=== PATIENT | female | born 1960 | race African-American/Black ===

== ENCOUNTER 2016-04-04 13:19 | Emergency (ER) | payer SELFPAY ==
[~2016-04-04] VITALS: Ht 152.4 cm; Wt 86.2 kg
[~2016-04-04 13:19] MED LIST: BACTRIM-DS1 EA ORAL; CEPHALEXIN500 MG ORAL; CLINDAMYCIN HC300 MG PO; NKM; TRAMADOL HCL50 MG ORAL; TRAMADOL HCL50 MG PO; ZITHROMAX250 MG ORAL
[2016-04-04 13:30] VITALS: BP 148/90
[2016-04-04] MEDS ORDERED: VITAMIN D1000 UNI1 ORAL (13:33)
--- NOTE | 2016-04-04 14:27 | Emergency Room Report ---
History of Present Illness General Chief Complaint: Upper Respiratory Illness Source: Patient Present Illness HPI 55-year-old female presents to emergency Department complaining of productive cough, fevers and chills in addition to nasal congestion times one week. 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 Patient states she is up-to-date with vaccinations she denies immunocompromise, recent travel or neck pain or stiffness. Patient does report sinus pressure with intermittent headaches. Patient denies history of asthma or smoking. Patient reports 8/10 in severity pain in the back exacerbated upon coughing.Denies CP, Palpitations, LOC, AMS, dizziness, Changes in Vision, Sensation, paresthesias, or a sudden severe headache. Allergies: Coded Allergies: HYDROCODONE BIT (Verified Allergy, Unknown, 04/04/16) Patient History Past Medical History: see triage record Past Surgical History: none Pertinent Family History: none Now: No Immunizations: UTD Reviewed Nursing Documentation: PMH: Agreed, PSxH: Agreed Nursing Documentation-PMH Past Medical History: No History, Except For Hx Hypertension: Yes Review of Systems All Other Systems: negative except mentioned in HPI Physical Exam Vital Signs Date Time Temp Pulse Resp B/P Pulse Ox O2 Delivery O2 Flow Rate FiO2 04/04/16 13:30 99.5 98 16 148/90 94 Room Air Sp02 EP Interpretation: reviewed, normal General Appearance: no apparent distress, alert, GCS 15, non-toxic Head: normocephalic, atraumatic Eyes: bilateral eye PERRL, bilateral eye normal inspection ENT: hearing grossly normal, normal pharynx, no angioedema, normal voice Neck: full range of motion, no meningismus, no bony tend, supple/symm/no masses Respiratory: chest non-tender, lungs clear, normal breath sounds, rales - left sided rales upon ascultation, speaking full sentences Cardiovascular #1: regular rate, rhythm, no edema Musculoskeletal: back normal, gait/station normal, normal range of motion Neurologic: alert, oriented x3, responsive, motor strength/tone normal, sensory intact, speech normal Psychiatric: judgement/insight normal, memory normal, mood/affect normal, no suicidal/homicidal ideation Skin: normal color, no rash, warm/dry, well hydrated Lymphatic: no adenopathy Medical Decision Making PA Attestation Dr. Bravo is my supervising Physician whom patient management has been discussed with. Diagnostic Impression: Primary Impression: Atypical pneumonia ER Course Pt. presents to the ED c/o productive cough, fevers and chills in addition to nasal congestion times one week. 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 Ddx considered but are not limited to URI, pneumonia, PE, strep pharyngitis, meningitis. Vital signs: Pt. is afebrile, the remaining VS are WNL H&PE are most consistent Clinically with atypical pneumonia ORDERS: -CXR 2 views: No consolidation, effusion, pneumothorax or acute cardiopulmonary findings per soft/preliminary read in ED by Dr. Bravo ED INTERVENTIONS: - Albuterol and Atrovent Nebulized Treatment. -1000mg Tylenol PO DISCHARGE: At this time pt. is stable for d/c to home. Will provide printed patient care instructions, and any necessary prescriptions. Care plan and follow up instructions have been discussed with the patient prior to discharge. Last Vital Signs Date Time Temp Pulse Resp B/P Pulse Ox O2 Delivery O2 Flow Rate FiO2 04/04/16 13:45 94 16 Room Air 04/04/16 13:30 99.5 148/90 94 Disposition: HOME, SELF-CARE Condition: Stable Scripts D-Methorphan Hb/Prometh Hcl* (PROMETHAZINE-DM SYRUP*) 118 Ml Syrup 5 ML ORAL Q4H Y for For Cough, #118 ML 0 Refills Prov: Aster Hopkins 04/04/16 Guaifenesin (Guaifenesin) 1,200 Mg Tab.er.12h 1200 MG PO BID for 7 Days, #14 TAB Prov: Aster Hopkins 04/04/16 Azithromycin* (ZITHROMAX*) 250 Mg Tablet 250 MG ORAL DAILY, #6 TAB 0 Refills Take two tables once daily for 1 day, then one tablet once daily for 4 days. Prov: Aster Hopkins 04/04/16 Patient Instructions: Upper Respiratory Infection, Adult Additional Instructions: Take medications as directed. Follow up with PCP in 3-5 days Return sooner to ED if new symptoms occur, or current symptoms become worse. Do not drink alcohol, drive, or operate heavy machinery while taking Cough Syrup as this may cause drowsiness. Aster Hopkins Apr 04, 2016 14:27
[2016-04-04] MEDS ORDERED: Ipratropium 0.02% Inh Soln 2.5ml UD HHN ONE (14:30)
[2016-04-04] MEDS ORDERED: Albuterol ud Inhalation HHN ONE (14:30)
[2016-04-04] MEDS ORDERED: Acetaminophen 500mg (ES) tab ORAL ONE (14:30)
[2016-04-04] MEDS ORDERED: GUAIFENESIN1200 MG PO (15:08)
[2016-04-04] MEDS ORDERED: ZITHROMAX250 MG ORAL (15:08)
[2016-04-04] MEDS ORDERED: PROMETHAZINE-D118 ML ORAL (15:08)
[2016-04-04 15:44] VITALS: BP 139/89
[2016-04-04 15:45] VITALS: BP 139/89
--- NOTE | 2016-04-07 09:12 | Diagnostic Imaging Report ---
Clinical history: Cough. Technique: Portable AP chest radiograph was obtained. Comparison: None Findings: Lung volumes are low. Scattered interstitial and perihilar opacities may reflect mild interstitial edema or vascular crowding. No focal consolidation. There is no pleural effusion or pneumothorax. The cardiac and mediastinal silhouettes are normal in appearance. The bony thorax is unremarkable. Impression: Suspected mild interstitial edema or vascular crowding.
== END 2016-04-04 15:47 | disposition home or self-care (01) ==
LOC: EMR 13:40
DX: J18.9 Pneumonia, unspecified organism (principal); I10 Essential (primary) hypertension
CPT/HCPCS: 71020; 94640; 94664; 99284

== ENCOUNTER 2018-10-13 12:19 | Emergency (ER) | payer OTHER ==
[~2018-10-13] VITALS: Ht 152.4 cm; Wt 77.1 kg
[~2018-10-13 12:19] MED LIST changes: +GUAIFENESIN1200 MG PO; +PROMETHAZINE-D118 ML ORAL; +VITAMIN D1000 UNI1 ORAL
--- NOTE | 2018-10-13 12:23 | NUR ---
ED Nurse Note: Patient walked in to ER due to right hand and left elbow swelling and itching since last night. Patient suspects it is a spider bite. No active bleeding noted. No open wound. Afebrile. Alert and oriented x4, verbally responsive.
[2018-10-13] MEDS ORDERED: UNOBMED (12:26)
--- NOTE | 2018-10-13 12:57 | Emergency Room Report ---
History of Present Illness General Chief Complaint: Animal Bite Source: Patient Present Illness HPI 57 YO Female presents to the ED C/o Itchy insect bites one to the left elbow and one to the right hand since yesterday. She denies pain. She reports some erythema and swelling. Reports no relief with use of Calamine lotion. Pt. denies fevers, chills or swollen tender lymph nodes. Denies lesions/rashes elsewhere on the body. Denies new medications or body washes or creams. Denies swelling of the lips, tongue , throat or airway. Denies wheezing, or shortness of breath. Denies recent travel, recent illness or ill contacts. denies blisters, oral lesions, or sloughing of the skin. Allergies: Coded Allergies: HYDROCODONE BIT (Verified Allergy, Unknown, 04/04/16) Patient History Past Medical History: see triage record Past Surgical History: none Pertinent Family History: none Last Menstrual Period: 1999 Now: No Reviewed Nursing Documentation: PMH: Agreed; PSxH: Agreed Nursing Documentation-PMH Past Medical History: No History, Except For Hx Hypertension: Yes Review of Systems All Other Systems: negative except mentioned in HPI Physical Exam Vital Signs Date Time Temp Pulse Resp B/P (MAP) Pulse Ox O2 Delivery O2 Flow Rate FiO2 10/13/18 12:22 98.2 92 18 144/85 (104) 98 Room Air Sp02 EP Interpretation: reviewed, normal General Appearance: no apparent distress, alert, GCS 15, non-toxic Head: normocephalic, atraumatic Eyes: bilateral eye normal inspection, bilateral eye PERRL ENT: hearing grossly normal, normal voice Neck: full range of motion Respiratory: chest non-tender, lungs clear, normal breath sounds, no respiratory distress, no accessory muscle use, no wheezing, speaking full sentences Cardiovascular #1: regular rate, rhythm Musculoskeletal: back normal, gait/station normal, normal range of motion, non- tender Neurologic: alert, oriented x3, responsive, motor strength/tone normal, sensory intact, speech normal, grossly normal Psychiatric: judgement/insight normal Skin: other - swelling, and excoriations to the right dorsal hand, and left elbow. Right had has erythema and warmth. left elbow no appreciable erythema but moderate ST swelling, no blisters, vesicles or fluctuance. Lymphatic: no adenopathy Medical Decision Making PA Attestation Dr. Terrazas is my supervising Physician whom patient management has been discussed with. Diagnostic Impression: Primary Impression: Insect bites of multiple sites, infected ER Course 57 YO Female presents to the ED C/o Itchy insect bites one to the left elbow and one to the right hand since yesterday. She denies pain. She reports some erythema and swelling. Reports no relief with use of Calamine lotion. Pt. denies fevers, chills or swollen tender lymph nodes. Denies lesions/rashes elsewhere on the body. Denies new medications or body washes or creams. Denies swelling of the lips, tongue , throat or airway. Denies wheezing, or shortness of breath. Denies recent travel, recent illness or ill contacts. denies blisters, oral lesions, or sloughing of the skin. Ddx considered but are not limited to cellulitis, scabies, insect bites, tic bites, spider bites, contact dermatitis, Drug reaction, allergic reaction, fungal infection, lice. Vital signs: are WNL, pt. is afebrile H&PE are most consistent with multiple insect bites, infected. ORDERS: none required at this time, the diagnosis is clinical ED INTERVENTIONS: None required at this time. DISCHARGE: At this time pt. is stable for d/c to home. Will provide printed patient care instructions, and any necessary prescriptions. Care plan and follow up instructions have been discussed with the patient prior to discharge. Last Vital Signs Date Time Temp Pulse Resp B/P (MAP) Pulse Ox O2 Delivery O2 Flow Rate FiO2 10/13/18 12:22 98.2 92 18 144/85 (104) 98 Room Air Disposition: HOME, SELF-CARE Condition: Stable Referrals: NON PHYSICIAN (PCP) Patient Instructions: Insect Bite, [id number] Additional Instructions: Take medications as directed. Follow up with a Primary Care Provider in 3-5 days, even if your symptoms have resolved. --Please review list of primary care clinics, if you do not already have a primary care provider Return sooner to ED if new symptoms occur, or current symptoms become worse. Do not drink alcohol, drive, or operate heavy machinery while taking Benadryl as this may cause drowsiness. - Please note that this Emergency Department Report was dictated using [employer] technology software, occasionally this can lead to erroneous entry secondary to interpretation by the dictation equipment. Aster Hopkins Oct 13, 2018 12:56
[2018-10-13] MEDS ORDERED: BENADRYL ALLERG25 M1 PO (12:59)
[2018-10-13] MEDS ORDERED: CLINDAMYCIN HC300 MG ORAL (12:59)
[2018-10-13] MEDS ORDERED: MUPIROCIN22 GM TOPIC (12:59)
[2018-10-13 13:09] VITALS: BP 125/50
[2018-10-13 13:16] VITALS: BP 125/50
--- NOTE | 2018-10-13 13:16 | NUR ---
ER DISCHARGE NOTE: Patient is cleared to be discharged per ERMD, pt is aox4, on room air, with stable vital signs. pt was given dc and prescription instructions, pt was able to verbalize understanding, pt id band and removed. pt is able to ambulate with steady gait. pt took all belongings.
== END 2018-10-13 13:16 | disposition home or self-care (01) ==
LOC: EMR 12:44
DX: S50.362A Insect bite (nonvenomous) of left elbow, initial encounter (principal); S60.561A Insect bite (nonvenomous) of right hand, initial encounter; L08.9 Local infection of the skin and subcutaneous tissue, unspecified; Z88.6 Allergy status to analgesic agent; I10 Essential (primary) hypertension; W57.XXXA Bitten or stung by nonvenomous insect and other nonvenomous arthropods, initial encounter; Y92.9 Unspecified place or not applicable
CPT/HCPCS: 99282